=== PATIENT | male | born 1985 | race Caucasian/White ===

== ENCOUNTER 2020-09-02 14:08 | Emergency (ER) | payer OTHER, SELFPAY ==
[2020-09-02 14:21] VITALS: BP 184/117; PULSE 89; RESP 17; TEMP 36.9; O2SAT 98
--- NOTE | 2020-09-02 14:26 | DI.US.S_ITS ---
PROCEDURE: US ABDOMEN COMPLETE INDICATIONS: JAUNDICE TECHNIQUE: Real-time scanning was performed of the abdominal and retroperitoneal organs, with image documentation. COMPARISON: None. FINDINGS: Liver: Liver is normal in size and homogeneous in echotexture. The main portal vein demonstrates normal size and demonstrates normal appearing, hepatopetal flow. Gallbladder: No findings of gallstones or sludge are seen. The gallbladder wall is not thickened, measuring 3 mm or less. No specific pericholecystic fluid is seen. The sonographic Clarke sign is negative. Biliary ducts: Intrahepatic bile ducts are non-dilated. The common bile duct is dilated to 2.5 by 3.9 cm. Sludge versus soft tissue can be seen within the common bile duct. Pancreas: Visualized portions of the pancreas are sonographically normal. Spleen: Spleen is normal in size and homogeneous in echotexture. Kidneys: Kidneys are normal in size and echotexture. Right kidney measures 11.4 cm long; left kidney measures 11.2 cm long. No hydronephrosis or nephrolithiasis. No solid masses. A likely complex cyst is seen at the superior pole of the left kidney that measures up to 2 cm. Aorta: Visualized aorta is normal in caliber at less than 3 cm. Iliacs: Proximal common iliac arteries are normal in caliber at less than 2.5 cm. IVC: Intrahepatic inferior vena cava is patent. Miscellaneous: No free abdominal fluid. IMPRESSION: A dilated common bile duct is seen, which measures up to 3.9 cm and is consistent with the given history. Sludge versus soft tissue can be seen within the common bile duct. If clinically appropriate, an MRCP could be considered for further evaluation (assuming that there is no contraindication to MRI). Unremarkable liver by ultrasound. There is an apparent complex cyst at the superior pole of the right kidney. When clinically appropriate, please consider a dedicated renal mass protocol CT (without and with contrast). Dictated by: Tip Wang M.D. on 09/02/2020 at 15:47 Approved by: Tip Wang M.D. on 09/02/2020 at 15:50
[2020-09-02 15:31] LABS: Add Manual Diff / Slide Review NO; Basophils Absolute Auto 0 /uL (0-100); Basophils Percent Auto 0.7 % (0-2); Eosinophils Absolute Auto 100 /uL (0-450); Eosinophils Percent Auto 0.8 % (2-4); Hematocrit 45.2 % (41-53); Hemoglobin 15.6 g/dL (13.5-17.5); Lymphocytes Absolute Auto 1000 /uL (1100-4500); Mean Corpuscular HGB Conc 34.5 % (30-36); Mean Corpuscular Hemoglobin 30.7 PG (26-34); Monocytes Absolute Auto 400 /uL (0-900); Monocytes Percent Auto 6.3 % (3-14); Neutrophils Absolute Auto 5200 /uL (1500-7000); Neutrophils Percent Auto 77.2 % (50-75); Platelet Count 330 X10^3/uL (150-400); Red Blood Cell Count 5.08 X10^6/uL (4.5-5.9); Red Cell Distribution Width 14.7 % (11.6-14.8); White Blood Cell Count 6.8 X10^3/uL (4.5-11.0)
[2020-09-02 15:49] LABS: INR 1.2 (0.9-1.3); Prothrombin Time 13.2 SECONDS (10.1-12.7)
[2020-09-02 15:54] LABS: Alanine Aminotransferase 652 IU/L (<50); Albumin 4.4 g/dL (3.5-5.0); Alkaline Phosphatase 619 U/L (38-126); Aspartate Aminotransferase 488 IU/L (17-59); BUN Creatinine Ratio 11.9 (6-22); Bilirubin Total 14.7 mg/dL (0.2-1.3); Blood Urea Nitrogen 10 mg/dL (9-20); Calcium 10.1 mg/dL (8.4-10.2); Carbon Dioxide 25 mmol/L (22-32); Chloride 99 mmol/L (98-107); Estimated Glomerular Filt Rate > 60.0 mL/min (>60); Globulin 4.4 g/dL (1.7-4.1); Glucose 191 mg/dL (70-100); HEMOLYSIS < 15 (0-50); Lipase 57 U/L (23-300); Potassium 3.8 mmol/L (3.4-5.1); Sodium 137 mmol/L (137-145); Total Protein 8.8 g/dL (6.3-8.2)
[2020-09-02 15:55] LABS: Lactate (Lactic Acid) 1.2 mmol/L (0.7-2.1)
--- NOTE | 2020-09-02 16:43 | ED_ITS ---
HPI - Skin/Abscess/Foreign Bdy General Chief complaint: Skin/Abscess/Foreign Body Stated complaint: jaundice Time Seen by Provider: 09/02/20 14:22 Source: patient Mode of arrival: Ambulatory Limitations: no limitations History of Present Illness HPI narrative: 35-year-old nonsmoker and previously healthy male presents with largely asymptomatic jaundice over the past few days. He states his daughter 1st noticed that he had yellowish eyes on Friday [place] the airport. He denies any pain, fever or chills. He has had no nausea, vomiting but has had some loose stools. He denies any intolerance of any particular diet. His only other complaint is of itchy skin. MD complaint: discoloration Onset (ago): day(s) Tetanus up to date: yes Location: generalized Severity: moderate Quality: pruritic Relieving factors: none Exacerbating factors: none Associated symptoms: denies other symptoms Treatments prior to arrival: none Related Data Allergies Allergy/AdvReac Type Severity Reaction Status Date / Time Penicillins Allergy Hives Verified 09/02/20 14:23 Review of Systems Constitutional Constitutional: Denies chills, Denies fatigue, Denies fever(s), Denies frequent falls, Denies lethargy and Denies weakness Eyes Eyes: Denies change in vision, Denies eye discharge, Denies irritation and Denies loss of vision ENT Ears, Nose, Mouth, and Throat: Denies change in voice, Denies dizziness, Denies neck pain, Denies sore throat and Denies throat swelling Cardiovascular Cardiovascular: Denies chest pain, Denies irregular heart rhythm, Denies lightheadedness, Denies palpitations, Denies dyspnea, Denies dyspnea on exertion and Denies orthopnea Respiratory Respiratory: Denies cough, Denies dyspnea, Denies dyspnea on exertion and Denies wheezing Gastrointestinal Gastrointestinal: Denies abdominal pain, Denies change in bowel habits, Reports diarrhea, Denies nausea and Denies vomiting Musculoskeletal Musculoskeletal: Denies neck pain and Denies numbness Integumentary/Breasts Skin/Breast: Reports pruritus, Denies erythema, Denies rash, Denies wounds and Reports jaundice Neurologic Neurologic: Denies behavioral changes, Denies confusion, Denies dizziness, Denies frequent falls, Denies loss of vision, Denies numbness and Denies weakness Psychiatric Psychiatric: Denies anxiety, Denies behavioral changes, Denies confusion, Denies depression, Denies homicidal ideation and Denies suicidal ideation Endocrine Endocrine: Denies fatigue, Denies flushing and Denies palpitations Hematologic/Lymphatic Hematologic/Lymphatic: Denies easy bruising Allergic/Immunologic Allergic/Immunologic: Denies urticaria, Denies throat swelling and Denies wheezing Patient History Social History Smoking Status: Never smoker Smoking Status: Never smoker alcohol intake frequency: a few times a week Substance Use Type: does not use Exam Narrative Exam Narrative: GENERAL: [35] year old patient appears stated age. Well- nourished, well-developed patient, in mild distress. HEAD: Atraumatic. Normocephalic. EYES: Pupils equal round and reactive. Extraocular motions intact. +scleral icterus. No injection or drainage. ENT: Nose without bleeding, purulent drainage. Throat without erythema, tonsillar hypertrophy or exudate. Airway patent. NECK: Trachea midline. Non tender CARDIOVASCULAR: Regular rate and rhythm without murmurs, gallops, or rubs. RESPIRATORY: Clear to auscultation. Breath sounds equal bilaterally. No wheezes, rales, or rhonchi. GASTROINTESTINAL: Abdomen soft, non-tender, nondistended. EXTREMITIES: No edema or joint tenderness. BACK: Nontender without deformity or crepitance. No flank tenderness. NEURO: AOx3. SKIN: Widespread jaundice, otherwise no rash or erythema of visible areas Initial Vital Signs Initial Vital Signs: Vital Signs Temperature 98.4 F 09/02/20 14:21 Pulse Rate 89 09/02/20 14:21 Respiratory Rate 17 09/02/20 14:21 Blood Pressure 184/117 H 09/02/20 14:21 Pulse Oximetry 98 09/02/20 14:21 Course Orders Ordered: ED Orders 09/02/20 14:26 US abdomen complete Stat 09/02/20 14:50 Complete Blood Count AUTO DIFF Stat Comprehensive Metabolic Panel Stat Hepatitis Acute Panel Stat Lactate (Lactic Acid) Stat Lipase Stat Prothrombin Time INR Stat 09/02/20 19:20 COVID19 -Nasal swab/Pre-Proc Stat Consultations Consultation #1: Given painless jaundice, with findings suggesting mass and obs tructive process our operations and maintenance specialist surgeon recommends transfer to facility with capability for ERCP, stenting etc. call to [facility] - GI does not do ERCP this weekend, recommends Prov call to Prov - happy to accept in transfer. OK to eat and will be NPO on arrival. Vital Signs Vital signs: Vital Signs - 8 hr 09/02/20 14:21 09/02/20 18:42 09/02/20 20:51 Temperature 98.4 F Pulse Rate 89 86 77 Respiratory Rate 17 Blood Pressure 184/117 H 197/101 H 161/90 H Pulse Oximetry 98 100 99 MDM - Skin/Abscess/Foreign Bdy Lab Data Result diagrams: 09/02/20 14:50 09/02/20 14:50 Labs: Lab Results 09/02/20 09/02/20 09/02/20 Range/Units 14:50 14:50 14:50 WBC 6.8 (4.5-11.0) X10^3/uL RBC 5.08 (4.5-5.9) X10^6/uL Hgb 15.6 (13.5-17.5) g/dL Hct 45.2 (41-53) % MCV 89.0 (80-100) fL MCH 30.7 (26-34) PG MCHC 34.5 (30-36) % RDW 14.7 (11.6-14.8) % Plt Count 330 (150-400) X10^3/uL Neut % (Auto) 77.2 H (50-75) % Lymph % (Auto) 15.0 L (25-40) % Carver % (Auto) 6.3 (3-14) % Eos % (Auto) 0.8 L (2-4) % Baso % (Auto) 0.7 (0-2) % Neut # (Auto) 5200 (4857-3338) /uL Lymph # (Auto) 1000 L (2706-3747) /uL Carver # (Auto) 400 (0-900) /uL Eos # (Auto) 100 (0-450) /uL Baso # (Auto) 0 (0-100) /uL PT 13.2 H (10.1-12.7) SECONDS INR 1.2 (0.9-1.3) Sodium 137 (137-145) mmol/L Potassium 3.8 (3.4-5.1) mmol/L Chloride 99 (98-107) mmol/L Carbon Dioxide 25 (22-32) mmol/L BUN 10 (9-20) mg/dL Creatinine 0.84 (0.66-1.25) mg/dL Estimated GFR > 60.0 (>60) mL/min BUN/Creatinine Ratio 11.9 (6-22) Glucose 191 H (70-100) mg/dL Lactate (0.7-2.1) mmol/L Calcium 10.1 (8.4-10.2) mg/dL Total Bilirubin 14.7 H (0.2-1.3) mg/dL AST 488 H (17-59) IU/L ALT 652 H (<50) IU/L Alkaline Phosphatase 619 H (38-126) U/L Total Protein 8.8 H (6.3-8.2) g/dL Albumin 4.4 (3.5-5.0) g/dL Globulin 4.4 H (1.7-4.1) g/dL Albumin/Globulin Ratio 1.0 (1.0-2.8) Lipase 57 (23-300) U/L SARS-CoV-2 (PCR) (Negative) 09/02/20 09/02/20 Range/Units 14:50 19:20 WBC (4.5-11.0) X10^3/uL RBC (4.5-5.9) X10^6/uL Hgb (13.5-17.5) g/dL Hct (41-53) % MCV (80-100) fL MCH (26-34) PG MCHC (30-36) % RDW (11.6-14.8) % Plt Count (150-400) X10^3/uL Neut % (Auto) (50-75) % Lymph % (Auto) (25-40) % Carver % (Auto) (3-14) % Eos % (Auto) (2-4) % Baso % (Auto) (0-2) % Neut # (Auto) (0651-0551) /uL Lymph # (Auto) (3976-6586) /uL Carver # (Auto) (0-900) /uL Eos # (Auto) (0-450) /uL Baso # (Auto) (0-100) /uL PT (10.1-12.7) SECONDS INR (0.9-1.3) Sodium (137-145) mmol/L Potassium (3.4-5.1) mmol/L Chloride (98-107) mmol/L Carbon Dioxide (22-32) mmol/L BUN (9-20) mg/dL Creatinine (0.66-1.25) mg/dL Estimated GFR (>60) mL/min BUN/Creatinine Ratio (6-22) Glucose (70-100) mg/dL Lactate 1.2 (0.7-2.1) mmol/L Calcium (8.4-10.2) mg/dL Total Bilirubin (0.2-1.3) mg/dL AST (17-59) IU/L ALT (<50) IU/L Alkaline Phosphatase (38-126) U/L Total Protein (6.3-8.2) g/dL Albumin (3.5-5.0) g/dL Globulin (1.7-4.1) g/dL Albumin/Globulin Ratio (1.0-2.8) Lipase (23-300) U/L SARS-CoV-2 (PCR) Negative (Negative) Urine Dip Bedside Urine Glucose Negative Bedside Urine Bilirubin - Negative Bedside Urine Ketone - Negative Urine Specific [place] 1.015 Bedside Urine Occult Blood - Negative Bedside Urine pH 6 Bedside Urine Protein - Negative Bedside Urine Urobilinogen - Negative Bedside Urine Nitrite - Negative Bedside Urine Leukocytes - Negative Esterase Imaging Data US - abdomen: Radiologist's Impression: Gary Aguirre 35 M [address] [id number] ReportSigned Patient: Gary Aguirre [facility]#: [id number]: 1985Acct:[id number]/Sex: 35 / MDate of Service: 09/02/20Loc: EDAccession Number: [id number] Procedure: US abdomen complete Ordering Provider: Gary Cary D.O. PROCEDURE: US ABDOMEN COMPLETE INDICATIONS: JAUNDICE TECHNIQUE: Real-time scanning was performed of the abdominal and retroperitoneal organs, with image documentation. COMPARISON: None. FINDINGS: Liver: Liver is normal in size and homogeneous in echotexture. The main portal vein demonstrates normal size and demonstrates normal appearing, hepatopetal flow. Gallbladder: No findings of gallstones or sludge are seen. The gallbladder wall is not thickened, measuring 3 mm or less. No specific pericholecystic fluid is seen. The sonographic Clarke sign is negative. Biliary ducts: Intrahepatic bile ducts are non-dilated. The common bile duct is dilated to 2.5 by 3.9 cm. Sludge versus soft tissue can be seen within the common bile duct. Pancreas: Visualized portions of the pancreas are sonographically normal. Spleen: Spleen is normal in size and homogeneous in echotexture. Kidneys: Kidneys are normal in size and echotexture. Right kidney measures 11.4 cm long; left kidney measures 11.2 cm long. No hydronephrosis or nephrolithiasis. No solid masses. A likely complex cyst is seen at the superior pole of the left kidney that measures up to 2 cm. Aorta: Visualized aorta is normal in caliber at less than 3 cm. Iliacs: Proximal common iliac arteries are normal in caliber at less than 2.5 cm. IVC: Intrahepatic inferior vena cava is patent. Miscellaneous: No free abdominal fluid. IMPRESSION: A dilated common bile duct is seen, which measures up to 3.9 cm and is consistent with the given history. Sludge versus soft tissue can be seen within the common bile duct. If clinically appropriate, an MRCP could be considered for further evaluation (assuming that there is no contraindication to MRI). Unremarkable liver by ultrasound. There is an apparent complex cyst at the superior pole of the right kidney. When clinically appropriate, please consider a dedicated renal mass protocol CT (without and with contrast). Dictated by: Tip Wang M.D. on 09/02/2020 at 15:47 Approved by: Tip Wang M.D. on 09/02/2020 at 15:50 Discharge Plan Departure Patient Disposition: [facility] Clinical Impression: Biliary obstruction, Elevated liver transaminase level, Common bile duct mass
[2020-09-02 18:42] VITALS: BP 197/101; PULSE 86; O2SAT 100
--- NOTE | 2020-09-02 19:07 | PC.NURSE ---
Dr. Cary spoke extensively to patient about transfer to a higher center of care for his diagnosis of tumor blocking bile duct. Patient takes no meds and has no hx of any medical problems. Patient has been in his street clothes with only lab draw and ultrsound. More extensive tests to be done at [facility] in [place]. Patient placed in a gown and IV started
[2020-09-02 19:41] LABS: COVID19 -Nasal RAPID Negative (Negative)
[2020-09-02 20:51] VITALS: BP 161/90; PULSE 77; O2SAT 99
[2020-09-04 00:12] LABS: HBsAg Screen Negative (Negative); Hepatitis A Antibody IgM Negative (Negative); Hepatitis B Core Antibody IgM Negative (Negative); Hepatitis C Antibody <0.1 s/co ratio (0.0-0.9)
== END 2020-09-02 21:10 | disposition short-term general hospital (02) ==
PROVIDERS: Emergency Provider Emergency Medicine
DX: K83.1 Obstruction of bile duct (principal); R74.01 Elevation of levels of liver transaminase levels; K83.8 Other specified diseases of biliary tract; R19.7 Diarrhea, unspecified; Z20.828 Contact with and (suspected) exposure to other viral communicable diseases
CPT/HCPCS: 36415; 76700; 80053; 80074; 81003; 83605; 83690; 85025; 85610; 87635; 99282; 99284; C9803

== ENCOUNTER → 2020-09-28 11:59 | Outpatient (CLI) | payer OTHER, SELFPAY ==
[2020-09-28 12:37] LABS: Alanine Aminotransferase 134 IU/L (<50); Albumin 4.4 g/dL (3.5-5.0); Albumin Globulin Ratio 1.3 (1.0-2.8); Alkaline Phosphatase 168 U/L (38-126); Aspartate Aminotransferase 102 IU/L (17-59); Bilirubin Total 1.8 mg/dL (0.2-1.3); Globulin 3.4 g/dL (1.7-4.1); HEMOLYSIS < 15 (0-50); Total Protein 7.8 g/dL (6.3-8.2)
[2020-09-30 18:02] LABS: ANA Screen, IFA Negative (.); Smooth Muscle Antibody 12 Units (0-19)
== END ==
PROVIDERS: Referring Provider Internal Medicine Gastroenterology; Visit Provider Internal Medicine Gastroenterology
DX: R79.89 Other specified abnormal findings of blood chemistry (principal)
CPT/HCPCS: 36415; 80076; 83516; 86038

== ENCOUNTER → 2021-06-04 11:44 | Outpatient (CLI) | payer OTHER, SELFPAY ==
[2021-06-04 14:39] LABS: COVID19 -Nasal RAPID Negative (Negative)
== END ==
PROVIDERS: Referring Provider Nurse Practitioner Family; Visit Provider Nurse Practitioner Family
DX: Z01.812 Encounter for preprocedural laboratory examination (principal); Z20.822 Contact with and (suspected) exposure to COVID-19
CPT/HCPCS: 87635

== ENCOUNTER 2021-06-05 07:31 | Day surgery (SDC) | payer OTHER, SELFPAY ==
[2021-06-05] MEDS: SODIUM CHLORIDE 0.9% 1,000 ML 84 ML IV (07:47)
[2021-06-05 07:48] VITALS: BP 149/98; PULSE 94; RESP 18; TEMP 36.4; O2SAT 99; BMI 27.3
--- NOTE | 2021-06-05 07:58 | PM.HP.1 ---
History of Present Illness History of Present Illness Date Patient Seen: 06/05/21 Time Patient Seen: 07:59 Chief complaint: DX COLONOSCOPY Narrative: PSC has recently been diagnosed. Colon cancer screening and evaluation for occult inflammatory bowel disease has been recommended. Patient is asymptomatic from a colon standpoint Patient History Family & Social History Tobacco & Substance use: Smoking Status Never smoker alcohol intake frequency a few times a week Substance Use Type does not use Meds Home Medications and Allergies Allergies Allergy/AdvReac Type Severity Reaction Status Date / Time Penicillins Allergy Hives Verified 09/02/20 14:23 Review of Systems Review of Systems ROS: Yes All systems reviewed with the patient and are negative except as otherwise documented Exam Const General: cooperative and comfortable Orientation: alert HENMT Head: normocephalic Ears: external ears normal Nose: external nose normal Face and sinus: normal facial exam Eyes General: appearance normal, both eyes and all related structures Neck Neck: normal visual inspection Chest Chest: normal inspection of the chest Resp Effort & Inspection: normal respiratory effort Cardio Rate: regular rate GI Inspection: normal to inspection Skin General: no rashes or lesions noted and No jaundice Neuro General: patient alert and moves all extremities Cognition: normal cognition Speech: speech normal Extrem General: no pedal edema Psych Appearance: grossly normal Assessment & Plan Assessment & Plan narrative: 36-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 Colonoscopy is pursued today for colon cancer screening and exclusion of occult IBD. Time Spent With Patient Critical Care time: I spent a total of [] minutes of critical care time on this patient's care today; this time is exclusive of procedural time.
--- NOTE | 2021-06-05 08:02 | PM.PREOP ---
Pre-operative Note COVID-19 COVID-19 status: Negative Result date/Date tested (Pos, Neg/Pending): 06/04/21 Interval Note History & Physical reviewed/Exam performed by Physician: Yes Changes to H&P: No ASA Class (for procedural sedation): II
--- NOTE | 2021-06-05 08:58 | PM.OP.COLON ---
Operative Date/Time/Diagnoses Date of procedure: 06/05/21 Time of procedure: 08:58 Pre-op diagnosis: Primary sclerosing cholangitis. Indicated for colon cancer screening. Post-op diagnosis: same Procedure & Clinicians Study performed: Colonoscopy Same procedure as scheduled: Yes Indications: Primary sclerosing cholangitis indicated for colon cancer screening Surgeon: Joe Harvey Procedure Notes SCOAP/Timeout: Done Procedure in detail: After the risks and benefits were explained, written and verbal informed consent was obtained. The patient was brought into the procedure room and placed into the left lateral decubitus position. Please see nurse fisheries management biologist notes for sedation details. Digital rectal examination was accomplished. The scope was introduced into the patient and advanced under direct visualization to the cecum as identified by the appendiceal orifice and ileocecal valve. The scope was slowly withdrawn to carefully examine the mucosa for any defects or lesions. Comprehensive imaging was accomplished throughout the rectum including the dentate line. The colon was decompressed, the scope was then removed from the patient who tolerated the procedure well. Bowel prep adequate Adult colonoscope Scope withdrawal time: 10 minutes Sedation minutes: 15 Specimen(s): none sent Complications: none Impression: There were some scattered diverticula noted in the mid colon. There was no suggestion of proctitis no suggestion of colitis. The terminal ileum was interrogated and appeared visually normal. No significant polyps mass lesions or other pathology noted throughout. Endoscopic diagnosis Visually unremarkable colonoscopy and terminal ileoscopy. Post-procedure Recommendations: Colonoscopy in 5 years Plan for aftercare: Repeat colonoscopy 5 years. Disposition: PACU
[2021-06-05 09:00] VITALS: BP 134/91; PULSE 86; RESP 15; TEMP 36.2; O2SAT 97
[2021-06-05 09:05] VITALS: BP 142/92; PULSE 83; RESP 14; O2SAT 98
[2021-06-05 09:10] VITALS: BP 140/88; PULSE 78; RESP 15; O2SAT 98
[2021-06-05 09:15] VITALS: BP 131/90; PULSE 77; RESP 16; O2SAT 98
[2021-06-05 09:22] VITALS: BP 131/67; PULSE 77; RESP 14; O2SAT 98
== END 2021-06-05 09:32 | disposition home or self-care (01) ==
PROVIDERS: Referring Provider Internal Medicine Gastroenterology; Visit Provider Internal Medicine Gastroenterology
PROC: 0DJD8ZZ Inspection of Lower Intestinal Tract, Via Natural or Artificial Opening Endoscopic (ICD-10-PCS; CPT 45378; principal; 2021-06-05 08:30)
DX: Z12.11 Encounter for screening for malignant neoplasm of colon (principal); K83.01 Primary sclerosing cholangitis
CPT/HCPCS: 45378; J2704

== ENCOUNTER → 2021-10-23 12:46 | Outpatient (CLI) | payer OTHER, SELFPAY ==
[2021-10-23 17:16] LABS: COVID-19 CEPHEID PCR (VTM/NP) Negative (Negative)
== END ==
PROVIDERS: Visit Provider Family Medicine Sleep Medicine
DX: Z20.822 Contact with and (suspected) exposure to COVID-19 (principal)
CPT/HCPCS: C9803; U0003; U0005

== ENCOUNTER 2024-04-08 17:27 | Emergency (ER) | payer OTHER, SELFPAY ==
[2024-04-08] VITALS (12 sets, daily range): BP systolic 149–200; BP diastolic 73–107; PULSE 57–85; RESP 18–22; TEMP 36.4; O2SAT 93–100; BMI 30.4
[2024-04-08 17:55] LABS: Add Manual Diff / Slide Review NO; Basophils Absolute Auto 0 /uL (0-100); Basophils Percent Auto 0.2 % (0-2); Eosinophils Absolute Auto 0 /uL (0-450); Eosinophils Percent Auto 0.1 % (2-4); Hematocrit 45.7 % (41-53); Hemoglobin 15.7 g/dL (13.5-17.5); Lymphocytes Absolute Auto 600 /uL (1100-4500); Lymphocytes Percent Auto 3.8 % (25-40); Mean Corpuscular HGB Conc 34.3 % (30-36); Mean Corpuscular Hemoglobin 30.4 PG (26-34); Mean Corpuscular Volume 88.6 fL (80-100); Monocytes Absolute Auto 400 /uL (0-900); Monocytes Percent Auto 2.8 % (3-14); Neutrophils Absolute Auto 14200 /uL (1500-7000); Neutrophils Percent Auto 93.1 % (50-75); Platelet Count 388 X10^3/uL (150-400); Red Blood Cell Count 5.16 X10^6/uL (4.5-5.9); Red Cell Distribution Width 13.2 % (11.6-14.8); White Blood Cell Count 15.2 X10^3/uL (4.5-11.0)
[2024-04-08 18:06] LABS: Alanine Aminotransferase 213 IU/L (<50); Albumin 4.7 g/dL (3.5-5.0); Albumin Globulin Ratio 1.2 (1.0-2.8); Alkaline Phosphatase 348 U/L (38-126); Aspartate Aminotransferase 108 IU/L (17-59); BUN Creatinine Ratio 15.7 (6-22); Bilirubin Total 1.2 mg/dL (0.2-1.3); Blood Urea Nitrogen 11 mg/dL (9-20); Calcium 9.5 mg/dL (8.4-10.2); Carbon Dioxide 22 mmol/L (22-32); Chloride 99 mmol/L (98-107); Estimated Glomerular Filt Rate > 60 mL/min (>60); Glucose 152 mg/dL (70-100); HEMOLYSIS < 15 (0-50); Lipase 74 U/L (23-300); Sodium 131 mmol/L (137-145); Total Protein 8.7 g/dL (6.3-8.2)
--- NOTE | 2024-04-08 18:44 | DI.CT.S_ITS ---
PROCEDURE: CT ABDOMEN PELVIS W CON INDICATIONS: RUQ PAIN, N/V, HX PRIMARY SCLEROSING CHOLANGITIS TECHNIQUE: After the administration of intravenous contrast, axial sections acquired from the lung bases to the pubic symphysis. Coronal and sagittal reformats were performed. For radiation dose reduction, the following was used: automated exposure control, adjustment of mA and/or kV according to patient size. COMPARISON: [facility], CT, CT CHEST WITHOUT CONTRAST, 04/23/2022, 17:26. FINDINGS: Image quality: Diagnostic. Lower Chest: No significant findings. ABDOMEN: Liver: No solid mass. Gallbladder: Gallbladder is distended. No radiopaque gallstones or wall thickening. Biliary ducts: There pneumobilia and mild intrahepatic biliary ductal dilatation. Wall thickening involving common bile duct with adjacent fat stranding is seen. No significant common bile duct dilatation. No calcified common bile duct stone is seen. Pancreas: No ductal dilation. Spleen: Size is within normal limits. Adrenal Glands: No adrenal nodules. Kidneys and Ureters: No hydronephrosis. No solid mass. No complex renal cystic lesion which requires follow up. Stomach and Bowel: Normal colonic caliber, without significant wall thickening. No abscess collection. Peritoneum: No abnormal intraperitoneal fluid. No free air. Ventral Wall: No significant ventral hernia. Abdominal Nodes: No retroperitoneal or mesenteric adenopathy by size criteria. Vessels: Aorta and inferior vena cava are normal in size. PELVIS: Pelvic Organs: Unremarkable. Bladder: No bladder wall thickening, accounting for underdistention. Pelvic Nodes: No enlarged lymph nodes. Miscellaneous: No inguinal hernias are seen. Bones: No aggressive osseous abnormality. IMPRESSION: 1. Distended gallbladder without calcified gallstones or significant gallbladder wall thickening. Finding may represent gallbladder contractility disorder suggest clinical correlation. 2. Intrahepatic biliary ductal dilatation and pneumobilia with thickened common bile duct wall and surrounding fat stranding likely related to patient's known clinical diagnosis of primary sclerosing cholangitis. No gross calcified common bile duct stone is seen. 3. No bowel obstruction or abnormal bowel wall thickening. No free fluid or free air. Dictated by: Marcello Garcia M.D. on 04/08/2024 at 19:37 Approved by: Marcello Garcia M.D. on 04/08/2024 at 19:40
--- NOTE | 2024-04-08 19:22 | ED.ABDPAIN ---
HPI - Abdominal Pain General Chief Complaint: Abdominal Pain Stated Complaint: sharp abd pain near liver, vomit x1 Time Seen by Provider: 04/08/24 18:14 Source: patient Mode of arrival: Ambulatory History of Present Illness HPI narrative: 39-year-old male with history of primary sclerosing cholangitis (followed by Hepatology), s/p biliary stent, hx papillary thyroid CA s/p resection presents by private vehicle from home for right upper quadrant abdominal pain with an episode of vomiting. Patient states that after he got home from work he noticed a sharp pain in his right abdomen. He became nauseous and vomited once. He was told that if he has any pain in the right side of his abdomen that he should come in for evaluation. He states that his last ERCP and MRCP were in the spring of this year and he had no progression of his symptoms. Related Data Previous Rx's Medication Instructions Recorded amoxicillin 875 mg-potassium 1 tab PO Q12H #14 tabs 04/08/24 clavulanate 125 mg tablet oxycodone 5 mg capsule 5 mg PO Q8H PRN pain #12 caps 04/08/24 Allergies Allergy/AdvReac Type Severity Reaction Status Date / Time Penicillins Allergy Hives Verified 09/02/20 14:23 Patient History Social History household members: spouse Smoking Status: Never smoker alcohol intake: current Smoking Status: Never smoker alcohol intake frequency: a few times a week Substance Use Type: does not use Exam Initial Vital Signs Initial Vital Signs: Vital Signs Temperature 97.6 F 04/08/24 17:32 Pulse Rate 85 04/08/24 17:32 Respiratory Rate 18 04/08/24 17:32 Blood Pressure 200/107 H 04/08/24 17:32 Pulse Oximetry 99 04/08/24 17:32 Oxygen Delivery Method Room Air 04/08/24 17:32 Const: Awake, alert, in pain, nontoxic appearing HEENT: No scleral icterus Cardiac: regular rate, regular rhythm RESP: unlabored, clear bilaterally, no wheezing GI: Soft, no reproducible tenderness to palpation, negative Clarke sign Skin: Warm, Dry, intact, no rashes Neuro: AO x3, CN II-XII grossly intact, moves all extremities Course Orders Ordered: ED Orders 04/08/24 17:36 EKG-12 Lead Stat 04/08/24 17:45 Complete Blood Count AUTO DIFF Stat Comprehensive Metabolic Panel Stat Lipase Stat 04/08/24 18:44 CT abdomen pelvis w con Stat 04/08/24 22:30 Urine Microscopic Stat Discontinued Medications Hydromorphone HCl (Hydromorphone 0.5 Mg Inj) 0.5 mg IV NOW ONE Stop: 04/08/24 22:01 Last Admin: 04/08/24 22:07 Dose: 0.5 mg Documented By: RASHARD Ceftriaxone Sodium 2,000 mg/ (Sodium Chloride) 100 mls @ 200 mls/hr IV NOW ONE Stop: 04/08/24 22:07 Last Infusion: 04/08/24 22:52 Dose: Infused Documented By: Admin: 04/08/24 22:21 Dose: 200 mls/hr Documented By: RASHARD Ketorolac Tromethamine (Ketorolac 30 Mg/Ml Vial) 15 mg IV NOW ONE Stop: 04/08/24 21:01 Last Admin: 04/08/24 21:05 Dose: 15 mg Documented By: RASHARD Morphine Sulfate (Morphine 4 Mg/Ml Inj) 4 mg IV NOW ONE Stop: 04/08/24 18:45 Last Admin: 04/08/24 19:23 Dose: 4 mg Documented By: RASHARD Morphine Sulfate (Morphine 4 Mg/Ml Inj) 4 mg IV NOW ONE Stop: 04/08/24 20:03 Last Admin: 04/08/24 20:10 Dose: 4 mg Documented By: RASHARD Ondansetron HCl (Ondansetron 4 Mg/2 Ml Inj) 4 mg IV NOW PRN PRN Reason: Nausea And Vomiting Ondansetron HCl (Ondansetron 4 Mg Odt) 4 mg PO NOW PRN PRN Reason: Nausea And Vomiting Ondansetron HCl (Ondansetron 4 Mg/2 Ml Inj) 4 mg IV NOW ONE Stop: 04/08/24 18:45 Last Admin: 04/08/24 19:23 Dose: 4 mg Documented By: RASHARD Oxycodone/Acetaminophen (Oxycodone/Apap 5/325 Prepack) 1 bottle MISC DIRECTED ONE Stop: 04/08/24 23:14 Last Admin: 04/08/24 23:19 Dose: 1 bottle Documented By: RASHARD Vital Signs Vital signs: Vital Signs - 8 hr 04/08/24 17:32 04/08/24 18:15 04/08/24 18:16 Temperature 97.6 F Pulse Rate 85 76 Respiratory Rate 18 Blood Pressure 200/107 H 170/92 H Pulse Oximetry 99 97 Oxygen Delivery Method Room Air 04/08/24 18:16 04/08/24 18:30 04/08/24 18:30 Temperature Pulse Rate 70 72 Respiratory Rate Blood Pressure 179/96 H Pulse Oximetry 98 97 Oxygen Delivery Method 04/08/24 19:00 04/08/24 19:00 04/08/24 19:14 Temperature Pulse Rate 57 L 80 Respiratory Rate Blood Pressure 164/80 H Pulse Oximetry 99 99 Oxygen Delivery Method Room Air 04/08/24 19:14 04/08/24 19:30 04/08/24 19:30 Temperature Pulse Rate 82 Respiratory Rate 18 Blood Pressure 178/90 H 165/91 H Pulse Oximetry 96 Oxygen Delivery Method 04/08/24 20:00 04/08/24 20:00 04/08/24 20:30 Temperature Pulse Rate 81 Respiratory Rate 22 Blood Pressure 158/94 H 162/83 H Pulse Oximetry 97 Oxygen Delivery Method Room Air 04/08/24 20:30 04/08/24 21:00 04/08/24 21:00 Temperature Pulse Rate 68 83 Respiratory Rate Blood Pressure 161/80 H Pulse Oximetry 99 100 Oxygen Delivery Method 04/08/24 21:30 04/08/24 21:30 04/08/24 22:00 Temperature Pulse Rate 73 68 Respiratory Rate Blood Pressure 151/73 H Pulse Oximetry 99 93 Oxygen Delivery Method Room Air Room Air 04/08/24 22:00 Temperature Pulse Rate Respiratory Rate Blood Pressure 149/77 H Pulse Oximetry Oxygen Delivery Method MDM - Abdominal Pain Differential Diagnosis Differential diagnosis: Likely abdominal pain, calculus of kidney and pancreatitis Lab Data 04/08/24 17:45 04/08/24 17:45 Labs: Lab Results 04/08/24 04/08/24 Range/Units 17:45 22:30 WBC 15.2 H (4.5-11.0) X10^3/uL RBC 5.16 (4.5-5.9) X10^6/uL Hgb 15.7 (13.5-17.5) g/dL Hct 45.7 (41-53) % MCV 88.6 (80-100) fL MCH 30.4 (26-34) PG MCHC 34.3 (30-36) % RDW 13.2 (11.6-14.8) % Plt Count 388 (150-400) X10^3/uL Neut % (Auto) 93.1 H (50-75) % Lymph % (Auto) 3.8 L (25-40) % Glenn % (Auto) 2.8 L (3-14) % Eos % (Auto) 0.1 L (2-4) % Baso % (Auto) 0.2 (0-2) % Neut # (Auto) 50566 H (0716-1042) /uL Lymph # (Auto) 600 L (0771-9950) /uL Glenn # (Auto) 400 (0-900) /uL Eos # (Auto) 0 (0-450) /uL Baso # (Auto) 0 (0-100) /uL Sodium 131 L (137-145) mmol/L Potassium 4.0 (3.4-5.1) mmol/L Chloride 99 (98-107) mmol/L Carbon Dioxide 22 (22-32) mmol/L BUN 11 (9-20) mg/dL Creatinine 0.70 (0.66-1.25) mg/dL Estimated GFR > 60 (>60) mL/min BUN/Creatinine Ratio 15.7 (6-22) Glucose 152 H (70-100) mg/dL Calcium 9.5 (8.4-10.2) mg/dL Total Bilirubin 1.2 (0.2-1.3) mg/dL AST 108 H (17-59) IU/L ALT 213 H (<50) IU/L Alkaline Phosphatase 348 H (38-126) U/L Total Protein 8.7 H (6.3-8.2) g/dL Albumin 4.7 (3.5-5.0) g/dL Globulin 4.0 (1.7-4.1) g/dL Albumin/Globulin Ratio 1.2 (1.0-2.8) Lipase 74 (23-300) U/L Urine RBC 0-1/hpf (0-5/HPF) Urine WBC None seen (0-5/HPF) Ur Squamous Epith Cells None seen (0-5/HPF) Urine Bacteria None seen (None) Ur Culture Indicated? Cult not indicated Vol Urine Centrifuged 10ml (spun) Point of care testing: Urine Dip Bedside Urine Glucose Negative Bedside Urine Bilirubin - Negative Bedside Urine Ketone - Negative Urine Specific [place] 1.010 Bedside Urine Occult Blood +/- Bedside Urine pH 6.0 Bedside Urine Protein - Negative Bedside Urine Urobilinogen - Negative Bedside Urine Nitrite - Negative Bedside Urine Leukocytes +/- [address] scan - abdomen/pelvis: Radiologist's Impression: PROCEDURE: CT ABDOMEN PELVIS W CON INDICATIONS: RUQ PAIN, N/V, HX PRIMARY SCLEROSING CHOLANGITIS TECHNIQUE: After the administration of intravenous contrast, axial sections acquired from the lung bases to the pubic symphysis. Coronal and sagittal reformats were performed. For radiation dose reduction, the following was used: automated exposure control, adjustment of mA and/or kV according to patient size. COMPARISON: [facility], CT, CT CHEST WITHOUT CONTRAST, 04/23/2022, 17:26. FINDINGS: Image quality: Diagnostic. Lower Chest: No significant findings. ABDOMEN: Liver: No solid mass. Gallbladder: Gallbladder is distended. No radiopaque gallstones or wall thickening. Biliary ducts: There pneumobilia and mild intrahepatic biliary ductal dilatation. Wall thickening involving common bile duct with adjacent fat stranding is seen. No significant common bile duct dilatation. No calcified common bile duct stone is seen. Pancreas: No ductal dilation. Spleen: Size is within normal limits. Adrenal Glands: No adrenal nodules. Kidneys and Ureters: No hydronephrosis. No solid mass. No complex renal cystic lesion which requires follow up. Stomach and Bowel: Normal colonic caliber, without significant wall thickening. No abscess collection. Peritoneum: No abnormal intraperitoneal fluid. No free air. Ventral Wall: No significant ventral hernia. Abdominal Nodes: No retroperitoneal or mesenteric adenopathy by size criteria. Vessels: Aorta and inferior vena cava are normal in size. PELVIS: Pelvic Organs: Unremarkable. Bladder: No bladder wall thickening, accounting for underdistention. Pelvic Nodes: No enlarged lymph nodes. Miscellaneous: No inguinal hernias are seen. Bones: No aggressive osseous abnormality. IMPRESSION: 1. Distended gallbladder without calcified gallstones or significant gallbladder wall thickening. Finding may represent gallbladder contractility disorder suggest clinical correlation. 2. Intrahepatic biliary ductal dilatation and pneumobilia with thickened common bile duct wall and surrounding fat stranding likely related to patient's known clinical diagnosis of primary sclerosing cholangitis. No gross calcified common bile duct stone is seen. 3. No bowel obstruction or abnormal bowel wall thickening. No free fluid or free air. Dictated by: Marcello Garcia M.D. on 04/08/2024 at 19:37 Approved by: Marcello Garcia M.D. on 04/08/2024 at 19:[address] [facility] Narrative Medical decision making narrative: Uncomfortable but nontoxic patient with history of significant biliary disease presenting for right upper quadrant abdominal pain. Despite the reported severity of the patient's pain his abdomen is soft, no reproducible tenderness to light or deep palpation, negative Clarke's sign. Despite a normal abdominal exam given the patient's history of PSC a CT of the abdomen and pelvis will be ordered. IV pain medications and nausea medications ordered. Laboratory work reviewed, WBC count 15.2, hemoglobin 15.7, platelets 388, sodium 131, potassium 4.0, creatinine 0.7, T bili 1.2, AST 108, ALT 213, alkaline phosphatase 348. No recent priors, last records on file are from 2020. CT of the abdomen and pelvis with contrast shows distended gallbladder, intrahepatic biliary ductal dilation and pneumobilia. No bowel obstruction or free fluid seen. Call placed to [facility] hepatology for recommendations. Patient complaining of breakthrough pain, 2nd dose of IV morphine ordered. Case discussed with of hepatology, who was able to review patient's images and laboratory work and compare them to they are most recent results. She states that the patient's liver enzymes are stable compared to when they were measured 1 month ago at , and the CT findings are actually reassuring, as the pneumobilia indicates an open biliary stent. Overall the appearance of the patient's CT scan today is similar when compared to previous images taken at their system recently. She states that due to the location of patient's pain as well as a WBC count of 15.2, although cholangitis is thought to be much less likely, out of an abundance of precaution she recommends a 1 week course of Augmentin for coverage. Patient is continuing to complain of waxing and waning right upper quadrant pain. He continued to have pain after Toradol and a dose of Dilaudid was ordered. Since patient was now had 4 doses of medications call remade to hepatology for any additional recommendations. has no further recommendations from previous. Patient reassessed, had sustained relief of pain after administration of Dilaudid. He and his significant other at bedside were informed of hepatology recommendations and they are in agreement with this plan. Augmentin and pain medication sent to pharmacy of choice. A prepack of pain medications sent home with the patient, he has previously been told to not take Tylenol, however if he has breakthrough pain it was a very small amount of Tylenol and should not cause damage to his liver.. [facility] also stated that they would reach out to the patient in the next 1-2 days for follow up. Discharge Plan Departure Patient Disposition: Home Clinical Impression: Abdominal pain, Primary sclerosing cholangitis Instructions: DI for Abdominal Pain-Adult Activity Restrictions/Additional Instructions: Your laboratory work today shows a very mild increase in your white blood cell count, however your liver enzymes are stable. The telephone services sales representative at [facility] was able to review your CT scan and it appears stable. They recommended a 1 week course of Augmentin as a precaution to prevent infection. Pain medications have been sent to your pharmacy. Do not take this medication with alcohol or before operating heavy machinery as it can cause drowsiness. This medication also causes constipation, take a daily stool softener with this medication. Prescriptions: New amoxicillin-pot clavulanate 875-125 mg tablet 1 tab PO Q12H Qty: 14 0RF oxycodone 5 mg capsule 5 mg PO Q8H PRN (Reason: pain) Qty: 12 0RF Referrals: RICHMOND Cramer MD [Primary Care Provider] - Stand Alone Forms: Patient Portal/API/Survey, Work Release Note
[2024-04-08] MEDS: MORPHINE 4 MG/ML INJ IV ×2 (19:23→20:10)
[2024-04-08] MEDS: ONDANSETRON 4 MG/2 ML INJ IV (19:23)
--- NOTE | 2024-04-08 19:25 | PC.NURSE ---
Pt awake and alert sitting in ED stretcher speaking with . Pt remains connected to cardiac, blood pressure, pulse ox, and resp monitors with alarms on and audible. Call light within reach.
--- NOTE | 2024-04-08 19:29 | PC.NURSE ---
Mouth wash and swabs povided for oral care s/p vomiting.
--- NOTE | 2024-04-08 20:28 | EKG_ITS ---
[facility] [address] [place] [address] Test Date: 2024-04-08 Pat Name: Gary Aguirre Department: 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
[2024-04-08] MEDS: KETOROLAC 30 MG/ML VIAL 15 MG IV (21:05)
[2024-04-08] MEDS: HYDROMORPHONE 0.5 MG INJ IV (22:07)
[2024-04-08] MEDS: cefTRIAXone 2,000 MG in SODIUM CHLORIDE 0.9% 100 ML 200 MG IV (22:21)
--- NOTE | 2024-04-08 22:53 | PC.NURSE ---
Taking po fluids without difficulty
--- NOTE | 2024-04-08 23:10 | PC.NURSE ---
Pt ambulatory around department without difficulty or assistance with 1 person standby.
[2024-04-08] MEDS: OXYCODONE/APAP 5/325 PREPACK 1 BOTTLE MISC (23:19)
[2024-04-08 23:25] LABS: Bacteria Urine None Seen; Culture Indicated Urine Cult Not Indicated; RBC Urine 0-1/HPF (0-5/HPF); Squamous Epithelial Cell Urine None Seen (0-5/HPF); Urine Volume 10mL (spun); WBC Urine None Seen (0-5/HPF)
== END 2024-04-08 23:28 | disposition home or self-care (01) ==
PROVIDERS: Emergency Medicine; Emergency Provider Emergency Medicine
DX: R10.11 Right upper quadrant pain (principal); K83.01 Primary sclerosing cholangitis; R11.2 Nausea with vomiting, unspecified
CPT/HCPCS: 74177; 80053; 81003; 81015; 83690; 85025; 93005; 96365; 96375; 96376; 99283; 99284; J0696; J1171; J1885; J2270; J2405; Q9967

== ENCOUNTER 2024-07-21 16:27 | Emergency (ER) | payer OTHER, SELFPAY ==
[2024-07-21 16:34] VITALS: BP 161/102; PULSE 99; RESP 20; TEMP 36.6; O2SAT 97; BMI 30.4
--- NOTE | 2024-07-21 16:42 | DI.RAD.S_ITS ---
PROCEDURE: XR HAND RT MIN 3V INDICATIONS: hand injury TECHNIQUE: 3 views of the hand(s) acquired. COMPARISON: None. FINDINGS: Bones: No fractures or dislocations. Carpal bones are normally aligned. Nonspecific subcortical cystic changes involving distal scaphoid. No suspicious bony lesions. Soft tissues: No suspicious soft tissue calcifications. IMPRESSION: No acute right hand fracture or dislocation. Dictated by: Marcello Garcia M.D. on 07/21/2024 at 17:08 Approved by: Marcello Garcia M.D. on 07/21/2024 at 17:08
[2024-07-21 19:30] VITALS: PULSE 87; O2SAT 97
[2024-07-21 19:32] VITALS: BP 151/87; PULSE 86; O2SAT 99
[2024-07-21 19:57] VITALS: BP 159/96; PULSE 72; O2SAT 99
--- NOTE | 2024-07-21 20:51 | ED.GENADULT ---
HPI - General Adult General Chief complaint: Extremity Injury, Upper Stated complaint: rt 3rd & 4th finger injury Time Seen by Provider: 07/21/24 20:50 Source: patient Mode of arrival: Ambulatory History of Present Illness HPI narrative: Otherwise healthy 39-year-old gentleman who was playing dodLumetric Lighting ball this evening was holding the ball and noted that it felt lumpy. He looked down and noted that the distal phalanx of both his middle finger and ring finger on the right side could not extend fully. He experiences no pain. He notes that he is right-handed. He has never had similar problems. He is able to completely flex and extend the hand itself. No other wrist injuries. Related Data Previous Rx's Medication Instructions Recorded amoxicillin 875 mg-potassium 1 tab PO Q12H #14 tabs 04/08/24 clavulanate 125 mg tablet oxycodone 5 mg capsule 5 mg PO Q8H PRN pain #12 caps 04/08/24 Allergies Allergy/AdvReac Type Severity Reaction Status Date / Time Penicillins Allergy Hives Verified 09/02/20 14:23 Review of Systems Review of Systems Narrative: Pertinent positive and negative findings as per HPI Patient History Social History household members: spouse Smoking Status: Never smoker alcohol intake: current Smoking Status: Never smoker alcohol intake frequency: a few times a week Exam Initial Vital Signs Initial Vital Signs: Vital Signs Temperature 98 F 07/21/24 16:34 Pulse Rate 99 H 07/21/24 16:34 Respiratory Rate 20 07/21/24 16:34 Blood Pressure 161/102 H 07/21/24 16:34 Pulse Oximetry 97 07/21/24 16:34 Oxygen Delivery Method Room Air 07/21/24 16:34 General: Alert appropriate in no acute distress Respiratory: Able to speak in full sentences, no obvious respiratory distress Skin: No obvious rashes, warm and dry Neurologic: Grossly intact no obvious asymmetries or abnormalities Psych: appropriate insight and affect, cooperative Extremity: Right hand, patient is right-hand dominant, is able to completely flex. He is unable to completely extend the distal phalanx middle finger and ring finger. There was no swelling, redness, pain. He is neurovascularly intact Course Orders Ordered: ED Orders 07/21/24 16:42 XR hand RT min 3V Stat Vital Signs Vital signs: Vital Signs - 8 hr 07/21/24 16:34 Temperature 98 F Pulse Rate 99 H Respiratory Rate 20 Blood Pressure 161/102 H Pulse Oximetry 97 Oxygen Delivery Method Room Air Medical Decision Making MDM Narrative Medical decision making narrative: 39-year-old gentleman playing dodge ball today noted that he was unable to completely extend the distal phalanx of his right middle and index fingers. Isn't sure exactly how the injury happened while he was playing dodge ball. He is in no pain there was no swelling. Splints were placed by me in the emergency department with improved comfort. He remains neurovascularly intact. no evidence of fractures or vascular injury. Does appear to have terminal extensor tendon injury to both affected fingers.We will ask him to follow up with Orthopedic surgeon and recommended that he keep the fingers splinted in extension for at least 6 weeks or until otherwise advised by the orthopedic surgeon. questions are answered and he is safe for discharge Discharge Plan Departure Patient Disposition: Home Clinical Impression: Mallet deformity of right ring finger, Mallet deformity of middle finger Instructions: DI for Mallet Finger Activity Restrictions/Additional Instructions: thank you for coming in today you are x-ray was actually very reassuringly normal on physical exam the fact that you are unable to extend the tips of your middle and ring finger suggests that you have some injury to the extensor tendons in those fingers. The treatment for this is splinting to fingers in extension. I have given you the to splint to use for at least the 1st week. I would also chai tape those fingers together for a bit more stability I would recommend that you follow up with [facility] to see if they have any additional recommendations. Please call their office at [phone] and explain that you need to be seen in ER follow up for 2 distal extensor tendon injuries to your right hand If you find that you are getting worse or develop any new symptoms, please feel free to return to the emergency department for further evaluation. Prescriptions: No Action amoxicillin-pot clavulanate 875-125 mg tablet 1 tab PO Q12H Qty: 14 0RF oxycodone 5 mg capsule 5 mg PO Q8H PRN (Reason: pain) Qty: 12 0RF Referrals: RICHMOND Cramer MD [Primary Care Provider] - Stand Alone Forms: Patient Portal/API/Survey
[2024-07-21 21:54] VITALS: O2SAT 97
[2024-07-21 21:55] VITALS: BP 154/91; PULSE 80; RESP 18; O2SAT 97
== END 2024-07-21 22:34 | disposition home or self-care (01) ==
PROVIDERS: Emergency Provider Emergency Medicine
DX: M20.011 Mallet finger of right finger(s) (principal)
CPT/HCPCS: 73130; 99281; 99283